=== PATIENT | male | born 1990 | race Two or more races ===

== ENCOUNTER 2018-04-04 19:31 | Emergency (ER) | payer MEDICAID, OTHER ==
[~2018-04-04] VITALS: Ht 172.7 cm; Wt 79.4 kg
[2018-04-04] MEDS ORDERED: cefTRIAXone 1GM/10ml IVPUSH 10 ML IV ONE (19:45)
[2018-04-04] MEDS ORDERED: ONDANSETRON HCL 4 MG/2 ML VIAL IV ONE (19:45)
[2018-04-04] MEDS ORDERED: MORPHINE SULFATE 4 MG/ML SYR/VIAL IV ONE (19:45)
[2018-04-04] MEDS ORDERED: TETANUS-DIPTH-ACEL PERTUSSIS 0.5ML SYRG IM ONE (20:45)
[2018-04-04 22:47] VITALS: BP 102/48
== END 2018-04-04 22:19 | disposition short-term general hospital (02) ==
LOC: ER 19:31
DX: S01.312A Laceration without foreign body of left ear, initial encounter (principal); W54.0XXA Bitten by dog, initial encounter; Y93.89 Activity, other specified; Y99.8 Other external cause status; Y92.89 Other specified places as the place of occurrence of the external cause
CPT/HCPCS: 90471; 90715; 96374; 96375; 99285; J0696; J2270; J2405